=== PATIENT | female | born 1985 | race Caucasian/White ===

== ENCOUNTER 2019-09-20 10:06 | Emergency (ER) | payer MEDICAID ==
[~2019-09-20] VITALS: Ht 149.9 cm; Wt 81.6 kg
[2019-09-20] MEDS ORDERED: FOLIC ACID 1 MG TAB PO ONE (10:45)
[2019-09-20 10:49] LABS: Basophils # (auto) 0 uL; Basophils % (auto) 0.4 % (0.0-2.0); Eosinophils # (auto) 0.2 uL; Hematocrit 42.6 % (36.0-46.0); Hemoglobin 14.6 g/dL (12.2-16.2); Lymphocytes # (auto) 2.1 uL; Lymphocytes % (auto) 24.4 % (10.0-50.0); Mean Corpuscular Hemoglobin 32.2 pg (28.0-32.0); Mean Corpuscular Hgb Conc. 34.3 g/dL (32.0-36.0); Mean Corpuscular Volume 93.9 fL (80.0-100.0); Monocytes # (auto) 0.7 uL; Monocytes % (auto) 8.4 % (0.0-12.0); Neutrophils # (auto) 5.5 uL; Neutrophils % (auto) 64.8 % (37.0-80.0); Platelet Count (auto) 266 10^3/uL (140-450); Red Blood Cells 4.54 10^6/uL (4.0-5.20); Red Cell Distribution Width 13.2 % (11.8-14.3); White Blood Cell 8.5 10^3/uL (4.4-10.8)
[2019-09-20 11:27] LABS: Albumin 3.9 g/dL (3.4-5.0); Calcium 9.1 mg/dL (8.5-10.1); Potassium 4.2 mmol/L (3.5-5.1)
[2019-09-20 11:30] LABS: BUN/Creatinine Ratio 15.9; Bilirubin, Total 0.2 mg/dL (0.2-1.0); Total Protein 7.6 g/dL (6.4-8.2)
[2019-09-20 13:33] VITALS: BP 130/76
== END 2019-09-20 14:30 | disposition home or self-care (01) ==
LOC: ER 10:06
DX: O46.91 Antepartum hemorrhage, unspecified, first trimester (principal); O23.41 Unspecified infection of urinary tract in pregnancy, first trimester; Z3A.01 Less than 8 weeks gestation of pregnancy; Z88.6 Allergy status to analgesic agent; Z88.2 Allergy status to sulfonamides
CPT/HCPCS: 36415; 76801; 80053; 84702; 85025

== ENCOUNTER 2020-01-10 17:16 | Emergency (ER) | payer MEDICAID ==
[~2020-01-10] VITALS: Ht 149.9 cm; Wt 79.4 kg
[2020-01-10 18:03] LABS: Urine Bacteria NONE SEEN /hpf (None Seen); Urine Blood 2+ /uL (Negative); Urine Mucus FEW (None Seen); Urine Specific Gravity 1.022 (1.001-1.035); Urine WBC 280 /hpf (0 - 5)
[2020-01-10 18:16] VITALS: BP 130/92
[2020-01-10] MEDS ORDERED: LIDOCAINE 1% HCL (LOCAL ANESTH.) INJ 20ML MDV ONE (18:29)
[2020-01-10] MEDS ORDERED: AZITHROMYCIN 250 MG TAB PO ONE (18:30)
[2020-01-10] MEDS ORDERED: cefTRIAXone SODIUM 250 MG VL IM ONE (18:30)
[2020-01-10] MEDS ORDERED: LIDOCAINE 1% HCL (LOCAL ANESTH.) INJ 20ML MDV IJ ONE (18:45)
== END 2020-01-10 18:47 | disposition home or self-care (01) ==
LOC: ER 17:16
DX: N39.0 Urinary tract infection, site not specified (principal); Z20.2 Contact with and (suspected) exposure to infections with a predominantly sexual mode of transmission; Z88.5 Allergy status to narcotic agent; Z88.2 Allergy status to sulfonamides; Z88.8 Allergy status to other drugs, medicaments and biological substances
CPT/HCPCS: 81001; 81025; 96372; 99283; J0696; J2001

== ENCOUNTER 2020-06-05 10:29 | Emergency (ER) | payer MEDICAID ==
[~2020-06-05] VITALS: Ht 149.9 cm; Wt 86.2 kg
[2020-06-05 11:02] VITALS: BP 133/74
== END 2020-06-05 11:23 | disposition home or self-care (01) ==
LOC: ER 10:29
DX: J02.9 Acute pharyngitis, unspecified (principal); Z88.5 Allergy status to narcotic agent; Z88.8 Allergy status to other drugs, medicaments and biological substances

== ENCOUNTER 2020-07-09 19:15 | Inpatient (IN) | payer MEDICAID ==
[~2020-07-09] VITALS: Ht 149.9 cm; Wt 88.6 kg
[2020-07-09 20:55] LABS: Urine Bacteria NONE SEEN /hpf (None Seen); Urine Blood 2+ /uL (Negative); Urine Mucus FEW (None Seen); Urine Specific Gravity 1.022 (1.001-1.035); Urine WBC 4 /hpf (0 - 5)
[2020-07-10] MEDS ORDERED: HYDROmorphone HCL 2 MG/ML VL IV ONE (02:45)
[2020-07-10] MEDS ORDERED: ONDANSETRON HCL 4 MG/2 ML VIAL IV ONE (02:45)
[2020-07-10 04:21] LABS: Basophils # (auto) 0 10 ^3/uL (0-0.2); Basophils % (auto) 0.3 % (0.0-2.0); Eosinophils # (auto) 0.3 10 ^3/uL (0-0.8); Eosinophils % (auto) 2.4 % (0.0-7.0); Hematocrit 38.4 % (36.0-46.0); Hemoglobin 12.9 g/dL (12.2-16.2); Lymphocytes # (auto) 3.1 10 ^3/uL (0.4-5.4); Lymphocytes % (auto) 27.6 % (10.0-50.0); Mean Corpuscular Hemoglobin 31.3 pg (28.0-32.0); Mean Corpuscular Hgb Conc. 33.7 g/dL (32.0-36.0); Monocytes # (auto) 0.8 10 ^3/uL (0-1.3); Monocytes % (auto) 7.4 % (0.0-12.0); Neutrophils % (auto) 62.3 % (37.0-80.0); Nucleated Red Blood Cells % 0.1 %; Platelet Count (auto) 283 10^3/uL (140-450); Red Blood Cells 4.13 10^6/uL (4.0-5.20); White Blood Cell 11.3 10^3/uL (4.4-10.8)
[2020-07-10 04:48] LABS: Albumin 3.5 g/dL (3.4-5.0); Calcium 8.5 mg/dL (8.5-10.1); Potassium 3.4 mmol/L (3.5-5.1)
[2020-07-10 04:51] LABS: Bilirubin, Total 0.3 mg/dL (0.2-1.0); Total Protein 6.9 g/dL (6.4-8.2)
[2020-07-10] MEDS ORDERED: KETOROLAC TROMETH 30 MG/ML 1ML VIAL IV PRN (05:15)
[2020-07-10] MEDS ORDERED: ONDANSETRON HCL 4 MG/2 ML VIAL IV PRN (05:15)
[2020-07-10] MEDS ORDERED: TEMAZEPAM 15 MG CAP PO PRN (05:15)
--- NOTE | 2020-07-10 09:00 | NUR ---
PATIENT ADMITTED TO ROOM 281B. PATIENT IS ALERT, ORIENTED AND AMBULATORY. AT THIS TIME ONLY COMPLAINTS ARE OF NAUSEA, PATIENT STATES D/T "PAIN MEDICATION ON EMPTY STOMACH." NO COMPLAINTS OF PAIN AND NO S/S OF DISTRESS. PATIENT VS 98.2, 57HR, 18RR, 110/69. PLAN OF CARE WAS DISCUSSED AND PATIENT WAS ORIENTED TO ROOM, CALL LIGHT USE, VISITING RESTRICTIONS; PATIENT INSTRUCTED TO CALL FOR ANY NEEDS OR FOR ASSISTANCE. NO QUESTIONS AT THIS TIME AND PATIENT VERBALIZED UNDERSTANDING OF TEACHINGS. BED LOW. LIGHT IN REACH.
[2020-07-10] MEDS ORDERED: MANNITOL FTV 25% 12.5 GM/50 ML 50 ML IV ONE (09:30)
[2020-07-10] MEDS ORDERED: SODIUM CHLORIDE 0.9% 1,000 ML IV ONE (09:30)
[2020-07-10 09:46] VITALS: BP 110/69
[2020-07-10] MEDS ORDERED: FAMOTIDINE 20 MG TAB PO SCH (10:00)
[2020-07-10 13:00] VITALS: BP_SYST 127
[2020-07-10] MEDS ORDERED: POTASSIUM CHL 20 Meq TABLET PO ONE (14:30)
--- NOTE | 2020-07-10 15:27 | NUR ---
SPOKE WITH DR. Kathy HAUSER ABOUT DISCHARGING THE PATIENT TODAY AND SETTING UP FOR LITHOTRIPSY THURS, PER RECOMMENDATION OF UROLOGY. UROLOGY PIGMENT AND LACQUER MIXER EVERARDO EXPRESSED TO ME THAT PATIENT SHOULD BE ABLE TO GO HOME TODAY AND FOLLOW UP ON AN OUTPATIENT BASIS. DR. HAUSER SPOKE WITH HIS CM WHO CONFIRMED THAT THEY WILL SEND THE AUTHORIZATION TO OUR CM HERE SO THAT PATIENT CAN BE SEEN BY UROLOGY ON THURS FOR POSSIBLE LITHOTRIPSY. PATIENT IS AWARE OF CHANGES AND PENDING DISCHARGE.
[2020-07-10] MEDS ORDERED: levoFLOXacin 500 MG TAB PO ONE (15:30)
--- NOTE | 2020-07-10 15:36 | NUR ---
I faxed outpatient follow up appointment for lithotripsy to [facility].
[2020-07-10] MEDS ORDERED: LEVO-28 PO (15:37)
[2020-07-10] MEDS ORDERED: HYDR-4833 PO (15:37)
[2020-07-10] MEDS ORDERED: ACE650RS PR (15:37)
--- NOTE | 2020-07-10 15:55 | NUR ---
INFORMED ME THAT HE HAS RECEIVED AUTHORIZATION FOR REFERRAL TO UROLOGY; AUTH # [id number].
[2020-07-10 16:13] VITALS: BP 98/60
[2020-07-10 16:41] VITALS: BP 127/81
--- NOTE | 2020-07-10 17:32 | NUR ---
PATIENT WAS DC HOME TODAY. PATIENT WAS GIVEN ALL INSTRUCTION ON F/U (APPT W/ PCP MADE) (UROLOGY TO CALL IN 2-3 DAYS FOR LITHOTRIPSY), ACTIVITY, DIET AND 2L FLUID DAILY. 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 PATIENT WAS INSTRUCTED TO RETURN TO ED IF SHE EXPERIENCES WORSENING S/S OR HAS ANY CP OR SOB. SHE VERBALIZED UNDERSTANDING OF INSTRUCTION GIVEN. PRESCRIPTION FOR OFF WORK GIVEN. PATIENT VERBALIZED UNDERSTANDING OF EDUCATION GIVEN AND ALL QUESTIONS WERE ANSWERED. IV DC'D DRESSING IN PLACE, NO S/S OF BLEEDING/PHLEBITIS. PATIENT WAS WHEELED OUT BY EVER CARTER.
[2020-07-11] MEDS ORDERED: levoFLOXacin 500 MG TAB PO SCH (10:00)
== END 2020-07-10 17:50 | disposition home or self-care (01) | DRG 468 ==
LOC: ER 19:15 → OVERFLOW 19:16 → WEST WING 07-10 09:35
PROVIDERS: ADMIT Nurse Practitioner; ATTEND Internal Medicine
DX: N13.9 Obstructive and reflux uropathy, unspecified (principal); N20.2 Calculus of kidney with calculus of ureter; Z87.442 Personal history of urinary calculi; E66.01 Morbid (severe) obesity due to excess calories; E87.6 Hypokalemia; N39.0 Urinary tract infection, site not specified; Z68.39 Body mass index [BMI] 39.0-39.9, adult; Z85.038 Personal history of other malignant neoplasm of large intestine; D72.829 Elevated white blood cell count, unspecified
CPT/HCPCS: 36415; 74176; 80053; 81001; 85025; G0378; J1885; J2405

== ENCOUNTER 2020-08-22 10:41 | Emergency (ER) | payer MEDICAID ==
[~2020-08-22] VITALS: Ht 149.9 cm; Wt 88.5 kg
[~2020-08-22 10:41] MED LIST: ACE650RS PR; HYDR-4833 PO; LEVO-28 PO
[2020-08-22 12:55] LABS: Urine Bacteria NONE SEEN /hpf (None Seen); Urine Blood 3+ /uL (Negative); Urine Hyaline Cast FEW /lpf (0 - 2); Urine Mucus FEW (None Seen); Urine Specific Gravity 1.021 (1.001-1.035); Urine WBC 61 /hpf (0 - 5)
[2020-08-22] MEDS ORDERED: SODIUM CHLORIDE 0.9% 1,000 ML IVB ONE (13:00)
[2020-08-22] MEDS ORDERED: ONDANSETRON HCL 4 MG/2 ML VIAL IV ONE (13:00)
[2020-08-22 13:35] LABS: Basophils # (auto) 0 10 ^3/uL (0-0.2); Basophils % (auto) 0.2 % (0.0-2.0); Eosinophils # (auto) 0 10 ^3/uL (0-0.8); Hematocrit 40.9 % (36.0-46.0); Hemoglobin 13.9 g/dL (12.2-16.2); Lymphocytes # (auto) 0.9 10 ^3/uL (0.4-5.4); Lymphocytes % (auto) 6.8 % (10.0-50.0); Mean Corpuscular Hemoglobin 31.7 pg (28.0-32.0); Mean Corpuscular Hgb Conc. 34.1 g/dL (32.0-36.0); Mean Corpuscular Volume 92.7 fL (80.0-100.0); Monocytes # (auto) 0.4 10 ^3/uL (0-1.3); Monocytes % (auto) 3.2 % (0.0-12.0); Neutrophils # (auto) 11.5 10 ^3/uL (1.6-8.6); Neutrophils % (auto) 89.8 % (37.0-80.0); Platelet Count (auto) 286 10^3/uL (140-450); Red Blood Cells 4.41 10^6/uL (4.0-5.20); Red Cell Distribution Width 13.3 % (11.8-14.3); White Blood Cell 12.8 10^3/uL (4.4-10.8)
[2020-08-22 14:03] LABS: BUN/Creatinine Ratio 18.5
[2020-08-22 14:06] LABS: Bilirubin, Total 0.4 mg/dL (0.2-1.0); Total Protein 7.9 g/dL (6.4-8.2)
[2020-08-22] MEDS ORDERED: KETOROLAC TROMETH 30 MG/ML 1ML VIAL IV ONE (17:00)
[2020-08-22 17:31] VITALS: BP 119/76
== END 2020-08-22 19:12 | disposition left against medical advice (07) ==
LOC: ER 10:41
DX: N13.2 Hydronephrosis with renal and ureteral calculous obstruction (principal); Z87.442 Personal history of urinary calculi; Z98.890 Other specified postprocedural states; Z79.899 Other long term (current) drug therapy; Z88.6 Allergy status to analgesic agent; Z88.5 Allergy status to narcotic agent; Z88.2 Allergy status to sulfonamides
CPT/HCPCS: 36415; 74176; 80053; 81001; 82150; 83690; 83735; 84702; 85025; 96361; 96374; 96375; 99284; J1885; J2405; J7030

== ENCOUNTER 2021-01-02 07:15 | Emergency (ER) | payer MEDICAID ==
[~2021-01-02] VITALS: Ht 149.9 cm; Wt 88.5 kg
[2021-01-02 07:40] VITALS: BP 126/62
[2021-01-02] MEDS ORDERED: PHENAZOPYRIDINE HCL 100 MG TAB PO ONE (08:00)
[2021-01-02 08:13] LABS: Urine Bacteria NONE SEEN /hpf (None Seen); Urine Blood 3+ /uL (Negative); Urine Mucus FEW (None Seen); Urine Specific Gravity 1.027 (1.001-1.035); Urine WBC 7 /hpf (0 - 5)
== END 2021-01-02 08:26 | disposition home or self-care (01) ==
LOC: ER 07:15
DX: N39.0 Urinary tract infection, site not specified (principal); Z87.440 Personal history of urinary (tract) infections; Z87.442 Personal history of urinary calculi; Z98.890 Other specified postprocedural states; Z79.899 Other long term (current) drug therapy; Z88.2 Allergy status to sulfonamides; Z88.5 Allergy status to narcotic agent; Z88.8 Allergy status to other drugs, medicaments and biological substances
CPT/HCPCS: 81001; 81025

== ENCOUNTER 2022-07-21 15:37 | Inpatient (IN) | payer MEDICAID ==
[~2022-07-21] VITALS: Ht 149.9 cm; Wt 98.1 kg
[2022-07-21] MEDS ORDERED: KETOROLAC TROMETH 30 MG/ML 1ML VIAL IV ONE (16:15)
[2022-07-21] MEDS ORDERED: ONDANSETRON HCL 4 MG/2 ML VIAL IV ONE (16:15)
[2022-07-21] MEDS ORDERED: SODIUM CHLORIDE 0.9% 1,000 ML IVB ONE (16:15)
[2022-07-21 17:05] LABS: Urine Bacteria NONE SEEN /hpf (None Seen); Urine Blood 3+ /uL (Negative); Urine Budding Yeast MANY /hpf (None Seen); Urine Specific Gravity 1.025 (1.001-1.035); Urine WBC 40 /hpf (0 - 5)
[2022-07-21 17:15] LABS: Basophils # (auto) 0 10 ^3/uL (0-0.2); Basophils % (auto) 0.4 % (0.0-2.0); Eosinophils # (auto) 0.3 10 ^3/uL (0-0.8); Hematocrit 39.6 % (36.0-46.0); Hemoglobin 13.5 g/dL (12.2-16.2); Lymphocytes # (auto) 2.5 10 ^3/uL (0.4-5.4); Lymphocytes % (auto) 28.8 % (10.0-50.0); Mean Corpuscular Hemoglobin 31.2 pg (28.0-32.0); Mean Corpuscular Volume 91.8 fL (80.0-100.0); Monocytes # (auto) 0.7 10 ^3/uL (0-1.3); Monocytes % (auto) 8.1 % (0.0-12.0); Neutrophils # (auto) 5.2 10 ^3/uL (1.6-8.6); Neutrophils % (auto) 59.7 % (37.0-80.0); Red Blood Cells 4.31 10^6/uL (4.0-5.20); Red Cell Distribution Width 14.2 % (11.8-14.3); White Blood Cell 8.8 10^3/uL (4.4-10.8)
[2022-07-21 17:16] LABS: Albumin 3.6 g/dL (3.4-5.0); Calcium 8.3 mg/dL (8.5-10.1); Potassium 3.8 mmol/L (3.5-5.1)
[2022-07-21 17:19] LABS: Bilirubin, Total 0.2 mg/dL (0.2-1.0); Total Protein 7.5 g/dL (6.4-8.2)
[2022-07-21] MEDS ORDERED: NITR-87 PO (17:33)
[2022-07-21] MEDS ORDERED: TRAM-297 PO (17:33)
[2022-07-21] MEDS ORDERED: cefTRIAXone 1GM/50ML D5W 50 ML IV ONE (17:45)
[2022-07-21] MEDS ORDERED: ONDANSETRON HCL 4 MG/2 ML VIAL IV PRN (21:00)
[2022-07-21] MEDS ORDERED: TEMAZEPAM 15 MG CAP PO PRN (21:00)
[2022-07-22 02:35] VITALS: BP 136/84
[2022-07-22] MEDS: traMADol HCL 50 MG TAB PO PRN ×2 (03:19→09:37)
[2022-07-22 05:00] VITALS: BP 112/58
[2022-07-22 07:59] LABS: Basophils # (auto) 0 10 ^3/uL (0-0.2); Basophils % (auto) 0.3 % (0.0-2.0); Eosinophils # (auto) 0.3 10 ^3/uL (0-0.8); Eosinophils % (auto) 2.7 % (0.0-7.0); Hematocrit 36.7 % (36.0-46.0); Hemoglobin 12.7 g/dL (12.2-16.2); Lymphocytes # (auto) 2.9 10 ^3/uL (0.4-5.4); Lymphocytes % (auto) 31.3 % (10.0-50.0); Mean Corpuscular Hemoglobin 31.5 pg (28.0-32.0); Mean Corpuscular Hgb Conc. 34.6 g/dL (32.0-36.0); Monocytes % (auto) 10.2 % (0.0-12.0); Neutrophils # (auto) 5.2 10 ^3/uL (1.6-8.6); Neutrophils % (auto) 55.5 % (37.0-80.0); Red Blood Cells 4.04 10^6/uL (4.0-5.20); Red Cell Distribution Width 13.8 % (11.8-14.3); White Blood Cell 9.4 10^3/uL (4.4-10.8)
[2022-07-22 08:14] LABS: BUN/Creatinine Ratio 27.7; Calcium 8.3 mg/dL (8.5-10.1); Potassium 4.4 mmol/L (3.5-5.1)
[2022-07-22 09:00] VITALS: BP 112/64
[2022-07-22] MEDS ORDERED: cefTRIAXone 1GM/50ML D5W 50 ML IV SCH (09:00)
[2022-07-22] MEDS ORDERED: PANTOPRAZOLE 40 MG TAB PO SCH (10:00)
[2022-07-22] MEDS ORDERED: PROM12.57 PO (12:34)
[2022-07-22] MEDS ORDERED: LEVO500T31 PO (12:34)
[2022-07-22] MEDS ORDERED: HYDR-4798 PO (12:34)
[2022-07-22 13:00] VITALS: BP 106/63
[2022-07-22 15:12] VITALS: BP 106/63
[2022-07-22 17:00] VITALS: BP 101/64
== END 2022-07-22 18:59 | disposition home or self-care (01) | DRG 465 ==
LOC: ER 15:37 → OVERFLOW 20:54 → CENTRAL 07-22 02:50
PROVIDERS: ADMIT Nurse Practitioner; ATTEND Internal Medicine
DX: N20.0 Calculus of kidney (principal); N39.0 Urinary tract infection, site not specified; Z20.822 Contact with and (suspected) exposure to COVID-19; Z83.3 Family history of diabetes mellitus; Z85.038 Personal history of other malignant neoplasm of large intestine; Z87.891 Personal history of nicotine dependence; Z90.49 Acquired absence of other specified parts of digestive tract; Z88.5 Allergy status to narcotic agent; Z88.8 Allergy status to other drugs, medicaments and biological substances
CPT/HCPCS: 36415; 74176; 80048; 80053; 81001; 81025; 85025; 87086; 87426; 96361; 96365; 96366; 96375; G0378; J0696; J1885; J2405

== ENCOUNTER 2022-11-03 13:14 | Inpatient (IN) | payer MEDICAID ==
[~2022-11-03] VITALS: Ht 144.8 cm; Wt 96.2 kg
[~2022-11-03 13:14] MED LIST changes: -ACE650RS PR; +HYDR-4798 PO; -HYDR-4833 PO; -LEVO-28 PO; +LEVO500T31 PO; +PROM12.57 PO
[2022-11-03] MEDS ORDERED: SODIUM CHLORIDE 0.9% 1,000 ML IV ONE ×2 (13:30)
[2022-11-03 13:52] LABS: Basophils # (auto) 0 10 ^3/uL (0-0.2); Basophils % (auto) 0.3 % (0.0-2.0); Eosinophils # (auto) 0.3 10 ^3/uL (0-0.8); Eosinophils % (auto) 3.6 % (0.0-7.0); Hematocrit 42.9 % (36.0-46.0); Hemoglobin 14.4 g/dL (12.2-16.2); Lymphocytes # (auto) 2.9 10 ^3/uL (0.4-5.4); Lymphocytes % (auto) 33.8 % (10.0-50.0); Mean Corpuscular Hemoglobin 31.3 pg (28.0-32.0); Mean Corpuscular Hgb Conc. 33.7 g/dL (32.0-36.0); Mean Corpuscular Volume 92.8 fL (80.0-100.0); Monocytes # (auto) 0.6 10 ^3/uL (0-1.3); Monocytes % (auto) 6.9 % (0.0-12.0); Neutrophils # (auto) 4.8 10 ^3/uL (1.6-8.6); Neutrophils % (auto) 55.4 % (37.0-80.0); Nucleated Red Blood Cells % 0.1 %; Red Blood Cells 4.62 10^6/uL (4.0-5.20); Red Cell Distribution Width 13.5 % (11.8-14.3); White Blood Cell 8.7 10^3/uL (4.4-10.8)
[2022-11-03 14:14] LABS: Alanine Aminotransferase 23 U/L (13-56); Albumin 3.8 g/dL (3.4-5.0); Anion Gap 8 (5-15); BUN/Creatinine Ratio 22.1; Blood Urea Nitrogen 15 mg/dL (7-18); Calcium 9.2 mg/dL (8.5-10.1); Carbon Dioxide 22 mmol/L (21-32); Chloride 111 mmol/L (98-107); GFR African American 126 mL/min; GFR Non-African American 104 mL/min; Glucose 87 mg/dL (74-106); Potassium 4.6 mmol/L (3.5-5.1); Sodium 141 mmol/L (136-145)
[2022-11-03 14:17] LABS: Alkaline Phosphatase 88 U/L (45-117); Aspartate Aminotransferase 26 U/L (15-37); Bilirubin, Total 0.4 mg/dL (0.2-1.0); Total Protein 7.8 g/dL (6.4-8.2)
[2022-11-03] MEDS ORDERED: SODIUM CHLORIDE 0.9% 1,000 ML IVB ONE (15:00)
[2022-11-03] MEDS ORDERED: FUROSEMIDE 20 MG/2 ML VIAL IV ONE (15:00)
[2022-11-03] MEDS ORDERED: KETOROLAC TROMETH 30 MG/ML 1ML VIAL IV ONE (15:00)
[2022-11-03 17:34] LABS: Urine Amorphous Crystal FEW /hpf (None Seen); Urine Bacteria NONE SEEN /hpf (None Seen); Urine Blood 3+ /uL (Negative); Urine Mucus FEW (None Seen); Urine Specific Gravity 1.025 (1.001-1.035); Urine WBC 134 /hpf (0 - 5); Urine WBC Clumps PRESENT /hpf (None Seen)
[2022-11-03] MEDS ORDERED: TAMSULOSIN HYDROCHLORIDE 0.4 MG CAP PO ONE (18:30)
[2022-11-03] MEDS ORDERED: cefTRIAXone 1GM/50ML D5W 50 ML IV ONE (18:45)
[2022-11-03] MEDS: SODIUM CHLORIDE 0.9% 1,000 ML IV SCH (18:55)
[2022-11-03 19:07] LABS: Cholesterol 229 mg/dL (< 200)
[2022-11-03 19:09] LABS: HDL Cholesterol 50 mg/dL (40-59); LDL Cholesterol 145 mg/dL (< 100); Triglycerides 291 mg/dL (< 150)
[2022-11-03] MEDS: KETOROLAC TROMETH 30 MG/ML 1ML VIAL IV PRN (20:07)
[2022-11-03] MEDS: ONDANSETRON HCL 4 MG/2 ML VIAL IV PRN (21:59)
[2022-11-04] MEDS: ONDANSETRON HCL 4 MG/2 ML VIAL IV PRN ×2 (02:00→09:33)
[2022-11-04] MEDS: SODIUM CHLORIDE 0.9% 1,000 ML IV SCH ×4 (03:41→15:57)
[2022-11-04 05:23] LABS: Basophils # (auto) 0 10 ^3/uL (0-0.2); Basophils % (auto) 0.2 % (0.0-2.0); Eosinophils # (auto) 0.2 10 ^3/uL (0-0.8); Eosinophils % (auto) 1.8 % (0.0-7.0); Hematocrit 37.2 % (36.0-46.0); Hemoglobin 12.3 g/dL (12.2-16.2); Lymphocytes # (auto) 2.4 10 ^3/uL (0.4-5.4); Lymphocytes % (auto) 22.8 % (10.0-50.0); Mean Corpuscular Hemoglobin 30.8 pg (28.0-32.0); Mean Corpuscular Volume 93.2 fL (80.0-100.0); Monocytes # (auto) 0.7 10 ^3/uL (0-1.3); Monocytes % (auto) 6.8 % (0.0-12.0); Neutrophils # (auto) 7.1 10 ^3/uL (1.6-8.6); Neutrophils % (auto) 68.4 % (37.0-80.0); Red Blood Cells 3.99 10^6/uL (4.0-5.20); Red Cell Distribution Width 13.3 % (11.8-14.3); White Blood Cell 10.3 10^3/uL (4.4-10.8)
[2022-11-04 05:38] LABS: BUN/Creatinine Ratio 30.9
[2022-11-04] MEDS: KETOROLAC TROMETH 30 MG/ML 1ML VIAL IV PRN (05:48)
[2022-11-04] MEDS ORDERED: cefTRIAXone 1GM/50ML D5W 50 ML IV SCH (09:00)
[2022-11-04] MEDS: ENOXAPARIN SOD 40 MG/0.4 ML SYRINGE SC SCH (09:32)
[2022-11-04] MEDS: PANTOPRAZOLE 40 MG/10 ML VIAL INJ IV SCH (09:33)
[2022-11-04] MEDS ORDERED: MANNITOL FTV 25% 12.5 GM/50 ML 50 ML IV ONE (11:00)
[2022-11-04 11:10] VITALS: BP 139/68
[2022-11-04] MEDS: HYDROcodone-ACET 10/325MG TAB PO PRN (11:36)
[2022-11-04 13:00] VITALS: BP 108/64
[2022-11-04] MEDS: METOCLOPRAMIDE HCL 5MG/ml INJ 2ml VIAL IV SCH ×2 (14:00→21:19)
[2022-11-04] MEDS ORDERED: SODIUM CHLORIDE 0.9% 1,000 ML IV ONE ×2 (14:00→18:00)
[2022-11-04 14:56] VITALS: BP 139/68
[2022-11-04 17:00] VITALS: BP 101/61
[2022-11-04] MEDS: TAMSULOSIN HYDROCHLORIDE 0.4 MG CAP PO SCH (18:00)
[2022-11-04] MEDS: ATORVASTATIN 20 MG TAB PO SCH (21:20)
[2022-11-04 22:00] VITALS: BP 119/72
[2022-11-04] MEDS ORDERED: PIPERACILLIN-TAZOB 3.375GM 100 ML IV SCH (23:04)
[2022-11-05] MEDS: PIPERACILLIN-TAZOB 3.375GM 100 ML IV SCH ×4 (00:21→23:32)
[2022-11-05] MEDS: KETOROLAC TROMETH 30 MG/ML 1ML VIAL IV PRN ×2 (03:05→18:09)
[2022-11-05] MEDS: SODIUM CHLORIDE 0.9% 1,000 ML IV SCH ×4 (03:23→23:20)
[2022-11-05 05:00] VITALS: BP 118/68
[2022-11-05 06:01] LABS: Basophils # (auto) 0 10 ^3/uL (0-0.2); Basophils % (auto) 0.3 % (0.0-2.0); Eosinophils # (auto) 0.2 10 ^3/uL (0-0.8); Eosinophils % (auto) 2.7 % (0.0-7.0); Hematocrit 34.3 % (36.0-46.0); Hemoglobin 11.8 g/dL (12.2-16.2); Lymphocytes # (auto) 2.1 10 ^3/uL (0.4-5.4); Lymphocytes % (auto) 24.4 % (10.0-50.0); Mean Corpuscular Hemoglobin 31.3 pg (28.0-32.0); Mean Corpuscular Hgb Conc. 34.4 g/dL (32.0-36.0); Mean Corpuscular Volume 90.9 fL (80.0-100.0); Monocytes # (auto) 0.8 10 ^3/uL (0-1.3); Monocytes % (auto) 8.8 % (0.0-12.0); Neutrophils # (auto) 5.6 10 ^3/uL (1.6-8.6); Neutrophils % (auto) 63.8 % (37.0-80.0); Nucleated Red Blood Cells % 0.1 %; Red Blood Cells 3.77 10^6/uL (4.0-5.20); Red Cell Distribution Width 13.4 % (11.8-14.3); White Blood Cell 8.8 10^3/uL (4.4-10.8)
[2022-11-05] MEDS: METOCLOPRAMIDE HCL 5MG/ml INJ 2ml VIAL IV SCH ×3 (06:21→22:08)
[2022-11-05 07:47] LABS: BUN/Creatinine Ratio 13.7; Calcium 8.1 mg/dL (8.5-10.1); Potassium 3.6 mmol/L (3.5-5.1)
[2022-11-05] MEDS ORDERED: MANNITOL FTV 25% 12.5 GM/50 ML 50 ML IV ONE (08:00)
[2022-11-05 09:00] VITALS: BP 105/60
[2022-11-05] MEDS: ENOXAPARIN SOD 40 MG/0.4 ML SYRINGE SC SCH (10:00)
[2022-11-05] MEDS: PANTOPRAZOLE 40 MG/10 ML VIAL INJ IV SCH (11:22)
[2022-11-05 13:00] VITALS: BP 102/66
[2022-11-05 17:00] VITALS: BP 123/77
[2022-11-05] MEDS: TAMSULOSIN HYDROCHLORIDE 0.4 MG CAP PO SCH (17:58)
[2022-11-05] MEDS: ATORVASTATIN 20 MG TAB PO SCH (21:59)
[2022-11-05 22:00] VITALS: BP 113/57
[2022-11-06 05:00] VITALS: BP 119/67
[2022-11-06] MEDS: METOCLOPRAMIDE HCL 5MG/ml INJ 2ml VIAL IV SCH ×3 (06:00→22:01)
[2022-11-06] MEDS: SODIUM CHLORIDE 0.9% 1,000 ML IV SCH ×3 (06:00→23:55)
[2022-11-06 09:00] VITALS: BP 130/87
[2022-11-06] MEDS: PIPERACILLIN-TAZOB 3.375GM 100 ML IV SCH ×3 (09:12→23:39)
[2022-11-06] MEDS: PANTOPRAZOLE 40 MG/10 ML VIAL INJ IV SCH (09:13)
[2022-11-06] MEDS: ENOXAPARIN SOD 40 MG/0.4 ML SYRINGE SC SCH (09:13)
[2022-11-06 13:00] VITALS: BP 129/74
[2022-11-06] MEDS: KETOROLAC TROMETH 30 MG/ML 1ML VIAL IV PRN (14:00)
[2022-11-06] MEDS ORDERED: MANNITOL FTV 25% 12.5 GM/50 ML 50 ML IV ONE (14:30)
[2022-11-06 17:00] VITALS: BP 141/72
[2022-11-06] MEDS: TAMSULOSIN HYDROCHLORIDE 0.4 MG CAP PO SCH (18:22)
[2022-11-06] MEDS: HYDROcodone-ACET 10/325MG TAB PO PRN (18:35)
[2022-11-06 22:00] VITALS: BP 124/55
[2022-11-06] MEDS: ATORVASTATIN 20 MG TAB PO SCH (22:02)
[2022-11-07] MEDS: SODIUM CHLORIDE 0.9% 1,000 ML IV SCH ×4 (02:00→22:02)
[2022-11-07 05:00] VITALS: BP 117/60
[2022-11-07] MEDS: METOCLOPRAMIDE HCL 5MG/ml INJ 2ml VIAL IV SCH ×3 (05:54→22:01)
[2022-11-07 07:21] LABS: Partial Thromboplastin Time 24.7 sec (24.6-33.4)
[2022-11-07] MEDS: PIPERACILLIN-TAZOB 3.375GM 100 ML IV SCH ×3 (08:22→23:44)
[2022-11-07 09:00] VITALS: BP 115/71
[2022-11-07] MEDS: ENOXAPARIN SOD 40 MG/0.4 ML SYRINGE SC SCH (10:00)
[2022-11-07] MEDS: PANTOPRAZOLE 40 MG/10 ML VIAL INJ IV SCH (10:20)
[2022-11-07 11:21] LABS: Basophils # (auto) 0 10 ^3/uL (0-0.2); Basophils % (auto) 0.4 % (0.0-2.0); Eosinophils # (auto) 0.3 10 ^3/uL (0-0.8); Eosinophils % (auto) 2.9 % (0.0-7.0); Hematocrit 34.1 % (36.0-46.0); Hemoglobin 11.6 g/dL (12.2-16.2); Lymphocytes # (auto) 2.4 10 ^3/uL (0.4-5.4); Lymphocytes % (auto) 24.7 % (10.0-50.0); Mean Corpuscular Hemoglobin 30.9 pg (28.0-32.0); Mean Corpuscular Hgb Conc. 34.1 g/dL (32.0-36.0); Mean Corpuscular Volume 90.6 fL (80.0-100.0); Monocytes # (auto) 0.8 10 ^3/uL (0-1.3); Monocytes % (auto) 8.3 % (0.0-12.0); Neutrophils # (auto) 6.1 10 ^3/uL (1.6-8.6); Neutrophils % (auto) 63.7 % (37.0-80.0); Red Blood Cells 3.76 10^6/uL (4.0-5.20); Red Cell Distribution Width 13.4 % (11.8-14.3); White Blood Cell 9.5 10^3/uL (4.4-10.8)
[2022-11-07 11:33] LABS: BUN/Creatinine Ratio 12.5; Calcium 8.2 mg/dL (8.5-10.1); Potassium 3.3 mmol/L (3.5-5.1)
[2022-11-07 13:00] VITALS: BP 127/71
[2022-11-07] MEDS ORDERED: MIDAZOLAM HCL 2MG/2ML 2ml VIAL (1mg/ml) ONE (15:30)
[2022-11-07] MEDS ORDERED: fentaNYL CITRATE 100 MCG/2 ML VL ONE (15:30)
[2022-11-07] MEDS ORDERED: ceFAZolin 1GM/50ML 100 ML IV ONE (15:33)
[2022-11-07] MEDS ORDERED: PROPOFOL 10 MG/ML 20 ML IV ONE (16:23)
[2022-11-07] MEDS ORDERED: ONDANSETRON HCL 4 MG/2 ML VIAL ONE (16:23)
[2022-11-07] MEDS ORDERED: ROCURONIUM 10MG/ML 10ML VIAL IV ONE (16:24)
[2022-11-07] MEDS ORDERED: MANNITOL FTV 25% 12.5 GM/50 ML 50 ML IV ONE (17:00)
[2022-11-07] MEDS ORDERED: ONDANSETRON HCL 4 MG/2 ML VIAL IV PRN (17:15)
[2022-11-07] MEDS ORDERED: HYDROmorphone HCL 2 MG/ML VL/or syr IV PRN ×2 (17:15)
[2022-11-07] MEDS ORDERED: GLYCOPYRROLATE 0.2 MG/ML 1ML VIAL ONE (17:21)
[2022-11-07] MEDS ORDERED: NEOSTIGMINE 1 MG/ML INJ (10mg/10ML VIAL) ONE (17:21)
[2022-11-07] MEDS ORDERED: SUGAMMADEX 200mg/2ml Vial (100MG/ML) IV ONE (17:33)
[2022-11-07] MEDS: TAMSULOSIN HYDROCHLORIDE 0.4 MG CAP PO SCH (18:00)
[2022-11-07] MEDS ORDERED: SUCCINYLCHOLINE CHLORIDE 20 MG/ML 10ML VIAL IV ONE (18:07)
[2022-11-07] MEDS ORDERED: MEPERIDINE HCL (25 MG/ML) 1ML VIAL ONE (18:15)
[2022-11-07] MEDS: ONDANSETRON HCL 4 MG/2 ML VIAL IV PRN (18:56)
[2022-11-07 22:00] VITALS: BP 117/61
[2022-11-07] MEDS: ATORVASTATIN 20 MG TAB PO SCH (22:01)
[2022-11-08] MEDS: ONDANSETRON HCL 4 MG/2 ML VIAL IV PRN (02:29)
[2022-11-08] MEDS: HYDROcodone-ACET 10/325MG TAB PO PRN (02:29)
[2022-11-08] MEDS: SODIUM CHLORIDE 0.9% 1,000 ML IV SCH ×2 (04:40→11:20)
[2022-11-08 05:00] VITALS: BP 111/52
[2022-11-08] MEDS: METOCLOPRAMIDE HCL 5MG/ml INJ 2ml VIAL IV SCH ×2 (05:35→14:00)
[2022-11-08] MEDS: PIPERACILLIN-TAZOB 3.375GM 100 ML IV SCH (08:23)
[2022-11-08 09:00] VITALS: BP 129/79
[2022-11-08] MEDS: ENOXAPARIN SOD 40 MG/0.4 ML SYRINGE SC SCH (10:00)
[2022-11-08] MEDS: PANTOPRAZOLE 40 MG/10 ML VIAL INJ IV SCH (10:59)
[2022-11-08] MEDS ORDERED: POTASSIUM CHL 20 Meq TABLET PO ONE (12:30)
[2022-11-08] MEDS ORDERED: LEVO500T31 PO (12:38)
[2022-11-08] MEDS ORDERED: PROM12.57 PO (12:38)
[2022-11-08] MEDS ORDERED: HYDR-4798 PO (12:38)
[2022-11-08 13:00] VITALS: BP 119/68
== END 2022-11-08 15:10 | disposition home or self-care (01) | DRG 446 ==
LOC: ER 13:14 → OVERFLOW 18:27 → EAST 11-04 08:53
PROVIDERS: ADMIT Registered Nurse; ATTEND Internal Medicine
PROC: 05HA33Z Insertion of Infusion Device into Left Brachial Vein, Percutaneous Approach (ICD-10-PCS; 2022-11-05)
PROC: B54NZZA Ultrasonography of Left Upper Extremity Veins, Guidance (ICD-10-PCS; 2022-11-05)
PROC: 0TC68ZZ Extirpation of Matter from Right Ureter, Via Natural or Artificial Opening Endoscopic (ICD-10-PCS; 2022-11-07)
PROC: 0T768DZ Dilation of Right Ureter with Intraluminal Device, Via Natural or Artificial Opening Endoscopic (ICD-10-PCS; principal; 2022-11-07 15:43)
DX: N20.2 Calculus of kidney with calculus of ureter (principal); E66.01 Morbid (severe) obesity due to excess calories; E78.5 Hyperlipidemia, unspecified; N39.0 Urinary tract infection, site not specified; Z20.822 Contact with and (suspected) exposure to COVID-19; E87.6 Hypokalemia; Z87.442 Personal history of urinary calculi; Z90.49 Acquired absence of other specified parts of digestive tract; Z68.41 Body mass index [BMI] 40.0-44.9, adult; Z88.2 Allergy status to sulfonamides; Z88.1 Allergy status to other antibiotic agents; Z82.49 Family history of ischemic heart disease and other diseases of the circulatory system; Z83.3 Family history of diabetes mellitus; Z90.79 Acquired absence of other genital organ(s)
CPT/HCPCS: 36415; 74018; 74176; 76775; 80048; 80053; 80061; 81001; 83036; 84443; 84484; 84702; 85025; 85610; 85730; 86850; 86900; 86901; 87040; 87077; 87086; 87186; 87426; 96361; 96374; 96375; C9113; G0378; J0330; J0690; J0696; J1885; J2250; J2405; J2543; J2704

== ENCOUNTER 2024-02-06 15:14 | Emergency (ER) | payer MEDICAID ==
[~2024-02-06] VITALS: Ht 149.9 cm; Wt 103.3 kg
[2024-02-06 15:44] VITALS: BP 133/86; PULSE 84; RESP 16; O2SAT 97
[2024-02-06 15:46] LABS: Basophils # (auto) 0 10 ^3/uL (0-0.2); Basophils % (auto) 0.3 % (0.0-2.0); Eosinophils # (auto) 0.2 10 ^3/uL (0-0.8); Hematocrit 40.9 % (36.0-46.0); Hemoglobin 13.5 g/dL (12.2-16.2); Lymphocytes % (auto) 38.2 % (10.0-50.0); Mean Corpuscular Hemoglobin 30.8 pg (28.0-32.0); Mean Corpuscular Volume 93.2 fL (80.0-100.0); Monocytes # (auto) 0.6 10 ^3/uL (0-1.3); Monocytes % (auto) 5.9 % (0.0-12.0); Neutrophils # (auto) 5.6 10 ^3/uL (1.6-8.6); Neutrophils % (auto) 53.6 % (37.0-80.0); Nucleated Red Blood Cells % 0.2 %; Red Blood Cells 4.38 10^6/uL (4.0-5.20); Red Cell Distribution Width 13.6 % (11.8-14.3); White Blood Cell 10.5 10^3/uL (4.4-10.8)
[2024-02-06 15:49] LABS: Chloride 107 mmol/L (98-107); Sodium 138 mmol/L (136-145)
[2024-02-06 15:50] LABS: Anion Gap 9 (5-15); Calcium 9.7 mg/dL (8.5-10.1); Carbon Dioxide 22 mmol/L (20-30)
[2024-02-06 15:55] LABS: BUN/Creatinine Ratio 12.7 (10.0-20.0); Blood Urea Nitrogen 9 mg/dL (9-23); Glucose 83 mg/dL (74-106)
[2024-02-06 16:06] LABS: Urine Bacteria None Seen /hpf (None Seen)
[2024-02-06 16:15] LABS: Urine Blood Negative /uL (Negative); Urine Clarity Clear (Clear); Urine Color Light-Yellow (Yellow); Urine Protein, UAD Negative (Negative); Urine Specific Gravity 1.022 (1.001-1.035); Urine Urobilinogen Normal (Negative); Urine WBC 2 /hpf (0 - 5); Urine pH 5.5 (5.0-9.0)
[2024-02-06] MEDS ORDERED: KETOROLAC TROMETH 30 MG/ML 1ML VIAL IV ONE (16:15)
[2024-02-06] MEDS ORDERED: NITR-87 PO (16:36)
[2024-02-06] MEDS: KETOROLAC TROMETH 60MG/2ML VIAL IM ONE (16:45)
[2024-02-06] MEDS: cefTRIAXone SOD 1,000 MG VL IM ONE (16:46)
== END 2024-02-06 17:05 | disposition home or self-care (01) ==
LOC: ER 15:14
DX: N39.0 Urinary tract infection, site not specified (principal); F15.90 Other stimulant use, unspecified, uncomplicated; Z87.442 Personal history of urinary calculi; Z98.890 Other specified postprocedural states; Z88.8 Allergy status to other drugs, medicaments and biological substances; Z79.899 Other long term (current) drug therapy
CPT/HCPCS: 36415; 80048; 81001; 85025; 96372; 99284; J0696; J1885